=== PATIENT | male | born 1955 | race Caucasian/White ===

== ENCOUNTER 2019-09-05 06:00 | Outpatient (RCR) | payer BC, SELFPAY | END 2019-10-05 00:01 | LOC: SPT 06:00 | PROVIDERS: Family Provider Family Medicine; Visit Provider Orthopaedic Surgery | DX: M75.01 Adhesive capsulitis of right shoulder (principal) | CPT/HCPCS: 97110 ×3; 97140; 97164; 97530 ==

== ENCOUNTER → 2019-10-28 11:31 | Outpatient (BNVA) | payer BC, SELFPAY | PROVIDERS: Family Provider Family Medicine; PCP Family Medicine; Visit Provider Nurse Practitioner | DX: F33.2 Major depressive disorder, recurrent severe without psychotic features (principal); F41.3 Other mixed anxiety disorders | CPT/HCPCS: 99214 ==

== ENCOUNTER → 2019-12-09 08:07 | Outpatient (BNVA) | payer BC, SELFPAY | PROVIDERS: Family Provider Family Medicine; PCP Family Medicine; Visit Provider Nurse Practitioner | DX: F41.3 Other mixed anxiety disorders (principal); F33.2 Major depressive disorder, recurrent severe without psychotic features | CPT/HCPCS: 99214 ==

== ENCOUNTER → 2020-01-12 07:45 | Outpatient (BNVA) | payer BC, SELFPAY | PROVIDERS: Family Provider Family Medicine; PCP Family Medicine; Visit Provider Nurse Practitioner | DX: F41.3 Other mixed anxiety disorders (principal); F33.2 Major depressive disorder, recurrent severe without psychotic features | CPT/HCPCS: 99213 ==

== ENCOUNTER → 2020-02-15 09:57 | Outpatient (BNVA) | payer BC, SELFPAY | PROVIDERS: Family Provider Family Medicine; PCP Family Medicine; Referring Provider Family Medicine; Visit Provider Family Medicine | DX: E78.00 Pure hypercholesterolemia, unspecified (principal); E13.9 Other specified diabetes mellitus without complications; H57.9 Unspecified disorder of eye and adnexa | CPT/HCPCS: 80053; 80061; 83036; 85025 ==

== ENCOUNTER → 2020-03-08 07:42 | Outpatient (BNVA) | payer BC, SELFPAY | PROVIDERS: Family Provider Family Medicine; PCP Family Medicine; Visit Provider Nurse Practitioner | DX: F41.3 Other mixed anxiety disorders (principal); F33.2 Major depressive disorder, recurrent severe without psychotic features | CPT/HCPCS: 99213 ==

== ENCOUNTER → 2020-06-08 07:07 | Outpatient (BNVA) | payer MEDICARE, SELFPAY | PROVIDERS: Family Provider Family Medicine; PCP Family Medicine; Visit Provider Nurse Practitioner | DX: F33.2 Major depressive disorder, recurrent severe without psychotic features (principal); F41.3 Other mixed anxiety disorders | CPT/HCPCS: 99214 ==

== ENCOUNTER → 2020-08-16 10:21 | Outpatient (BNVA) | payer MEDICARE, SELFPAY | PROVIDERS: Family Provider Family Medicine; PCP Family Medicine; Visit Provider Family Medicine | DX: E13.9 Other specified diabetes mellitus without complications (principal); E78.00 Pure hypercholesterolemia, unspecified; Z68.33 Body mass index [BMI] 33.0-33.9, adult | CPT/HCPCS: 80053; 80061; 83036 ==

== ENCOUNTER → 2020-10-20 08:44 | Outpatient (BNVA) | payer MEDICARE, SELFPAY | PROVIDERS: Family Provider Family Medicine; PCP Family Medicine; Visit Provider Family Medicine | DX: E78.00 Pure hypercholesterolemia, unspecified (principal) | CPT/HCPCS: 80061 ==

== ENCOUNTER → 2020-12-28 11:18 | Outpatient (BNVA) | payer MEDICARE, SELFPAY | PROVIDERS: Family Provider Family Medicine; PCP Family Medicine; Visit Provider Nurse Practitioner | DX: F33.2 Major depressive disorder, recurrent severe without psychotic features (principal); F41.3 Other mixed anxiety disorders | CPT/HCPCS: 99214 ==

== ENCOUNTER → 2021-02-05 11:16 | Outpatient (BNVA) | payer MEDICARE, SELFPAY | PROVIDERS: Family Provider Family Medicine; PCP Family Medicine; Visit Provider Nurse Practitioner | DX: F33.2 Major depressive disorder, recurrent severe without psychotic features (principal); F41.3 Other mixed anxiety disorders | CPT/HCPCS: 99214 ==

== ENCOUNTER → 2021-03-09 07:47 | Outpatient (BNVA) | payer MEDICARE, SELFPAY | PROVIDERS: Family Provider Family Medicine; PCP Family Medicine; Visit Provider Nurse Practitioner | DX: F33.2 Major depressive disorder, recurrent severe without psychotic features (principal); F41.3 Other mixed anxiety disorders | CPT/HCPCS: 99214 ==

== ENCOUNTER → 2021-04-12 09:35 | Outpatient (BNVA) | payer MEDICARE, SELFPAY | PROVIDERS: Family Provider Family Medicine; PCP Family Medicine; Visit Provider Family Medicine | DX: E13.9 Other specified diabetes mellitus without complications (principal); K64.5 Perianal venous thrombosis; F41.3 Other mixed anxiety disorders; N52.9 Male erectile dysfunction, unspecified | CPT/HCPCS: 80053; 83036 ==

== ENCOUNTER → 2021-05-31 07:45 | Outpatient (BNVA) | payer MEDICARE, SELFPAY | PROVIDERS: Family Provider Family Medicine; PCP Family Medicine; Visit Provider Nurse Practitioner | DX: F33.2 Major depressive disorder, recurrent severe without psychotic features (principal); F41.3 Other mixed anxiety disorders; F12.20 Cannabis dependence, uncomplicated | CPT/HCPCS: 99214 ==

== ENCOUNTER → 2021-08-23 07:42 | Outpatient (BNVA) | payer MEDICARE, SELFPAY | PROVIDERS: Family Provider Family Medicine; PCP Family Medicine; Visit Provider Nurse Practitioner | DX: F33.2 Major depressive disorder, recurrent severe without psychotic features (principal); F41.3 Other mixed anxiety disorders; F15.20 Other stimulant dependence, uncomplicated; F12.20 Cannabis dependence, uncomplicated | CPT/HCPCS: 80306; 99214 ==

== ENCOUNTER → 2021-11-13 07:52 | Outpatient (BNVA) | payer MEDICARE, SELFPAY | PROVIDERS: Family Provider Family Medicine; PCP Family Medicine; Visit Provider Nurse Practitioner | DX: F33.2 Major depressive disorder, recurrent severe without psychotic features (principal); F41.3 Other mixed anxiety disorders; F15.20 Other stimulant dependence, uncomplicated; F12.20 Cannabis dependence, uncomplicated | CPT/HCPCS: 99214 ==

== ENCOUNTER → 2021-12-11 12:03 | Outpatient (BNVA) | payer MEDICARE, SELFPAY | PROVIDERS: Family Provider Family Medicine; PCP Family Medicine; Visit Provider Family Medicine | DX: Z00.00 Encounter for general adult medical examination without abnormal findings (principal); E13.9 Other specified diabetes mellitus without complications | CPT/HCPCS: 80053; 83036 ==

== ENCOUNTER → 2022-05-15 08:02 | Outpatient (BNVA) | payer MEDICARE, SELFPAY | PROVIDERS: Family Provider Family Medicine; PCP Family Medicine; Visit Provider Family Medicine | DX: E13.9 Other specified diabetes mellitus without complications (principal) | CPT/HCPCS: 80053; 83036 ==

== ENCOUNTER 2022-05-29 08:00 | Outpatient (CLI) | payer MEDICARE, SELFPAY ==
--- NOTE | 2022-05-29 08:18 | XR_ITS ---
WS: [id number] Thoracic spine, 3 views, 05/29/2022 Clinical Data: S39.92XA - Unspecified injury of lower back, initial enco... Comparison: None. Findings: No compression fractures are seen. The disc heights are normal. There is moderate osteoarthritis of the thoracic vertebral bodies. The paravertebral regions are not remarkable. XR/XR thoracic spine 3V* [id number] Impression: Moderate osteoarthritis of the thoracic vertebral bodies.
== END 2022-05-29 08:01 | disposition home or self-care (01) ==
LOC: RAD 08:03
PROVIDERS: PCP Family Medicine; Visit Provider Family Medicine
DX: S39.92XA Unspecified injury of lower back, initial encounter (principal); X58.XXXA Exposure to other specified factors, initial encounter; M47.894 Other spondylosis, thoracic region
CPT/HCPCS: 72072

== ENCOUNTER → 2023-01-22 11:09 | Outpatient (BNVA) | payer OTHER, SELFPAY | PROVIDERS: PCP Family Medicine | DX: Z79.899 Other long term (current) drug therapy (principal) | CPT/HCPCS: 80061; 83036 ==

== ENCOUNTER 2023-03-14 10:15 | Outpatient (CLI) | payer MEDICARE, SELFPAY ==
[2023-02-07 14:32] VITALS: BP 147/83; BMI 33.0
[2023-03-14 11:08] LABS: Amphetamines Screen Urine Negative (Negative); Barbiturates Screen Urine Negative (Negative); Benzodiazepines Screen Urine Negative (Negative); Cocaine Screen Urine Negative (Negative); Opiate Screen Urine Negative (Negative); PCP Screen Urine Negative (Negative); THC Screen Urine Negative (Negative)
[2023-03-14 11:11] LABS: Alanine Aminotransferase 105 U/L (0-41); Albumin Level 4.1 g/dL (3.5-5.2); Alkaline Phosphatase 120 U/L (40-130); Anion Gap 17.1 (5-19); Aspartate Amino Transferase 54 U/L (0-40); Blood Urea Nitrogen 13 mg/dL (8-23); Calcium 9.1 mg/dL (8.5-10.5); Carbon Dioxide 22 mmol/L (22-29); Chloride 99 mmol/L (98-107); Globulin 3.2 g/dL (1.3-4.6); Glomerular Filtration Rate 84.2 mL/min (90-130); Glucose 347 mg/dL (65-115); Osmolality Calculated 292 mOsm/kg (285-295); Potassium 4.1 mmol/L (3.5-5.1); Sodium 134 mmol/L (136-145); Total Bilirubin 0.6 mg/dL (0.15-1.2); Total Protein 7.3 g/dL (6.6-8.7)
== END 2023-03-14 10:16 | disposition home or self-care (01) ==
PROVIDERS: PCP Family Medicine; Visit Provider Nurse Practitioner Psychiatric/Mental Health
DX: Z79.899 Other long term (current) drug therapy (principal)
CPT/HCPCS: 36415; 80053; 80306; 93005

== ENCOUNTER → 2023-06-16 13:49 | Outpatient (BNVA) | payer MEDICARE, SELFPAY ==
[2023-02-07 14:32] VITALS: BP 147/83; BMI 33.0
== END ==
PROVIDERS: PCP Family Medicine; Visit Provider Family Medicine
DX: E05.90 Thyrotoxicosis, unspecified without thyrotoxic crisis or storm (principal); E13.9 Other specified diabetes mellitus without complications; F33.2 Major depressive disorder, recurrent severe without psychotic features; I10 Essential (primary) hypertension; F15.20 Other stimulant dependence, uncomplicated
CPT/HCPCS: 80053; 83036; 84439

== ENCOUNTER 2023-11-20 13:10 | Outpatient (CLI) | payer MEDICARE, SELFPAY ==
[2023-02-07 14:32] VITALS: BP 147/83; BMI 33.0
--- NOTE | 2023-11-20 13:30 | USCV_ITS ---
Sameer Ng Age: 68 Gender: M : 1955 Exam Date: 11/20/2023 14:44 Ordering Phys: Julian Arreguin MD Technologist: Kayla Lopez Network Security Consultant [place] [facility] [place]: WEAKNESS RIGHT LEFT Brachial 172.00 mmHg Brachial 163.00 mmHg Pressure (mmHg) Waveform Pressure (mmHg) Waveform 194.00 BEHAVIORAL HEALTH DIRECTOR 200.00 0.00 DPA 182.00 1.13 Ankle/Brachial Index 1.16 162.00 Pre-Exercise Toe Pressure 144.00 0.94 Pre-Exercise Toe/Brachial Index 0.84 FINDINGS Resting JOSSELYN 1.13 on the right side and 1.16 on the left Resting TBI of 0.94 on the right and 0.84 on the left CONCLUSIONS Normal resting ABIs and TBIs bilaterally, suggesting no significant arterial obstruction Dr Keshia Narayanan MD [facility] (Electronically Signed) Final Date: 24 November 2023 21:46 S
== END 2023-11-20 13:11 | disposition home or self-care (01) ==
LOC: RAD 13:10
PROVIDERS: PCP Family Medicine; Visit Provider Family Medicine
DX: E13.51 Other specified diabetes mellitus with diabetic peripheral angiopathy without gangrene (principal); R53.1 Weakness
CPT/HCPCS: 93922

== ENCOUNTER → 2024-04-01 09:50 | Outpatient (BNVA) | payer MEDICARE, SELFPAY ==
[2023-02-07 14:32] VITALS: BP 147/83; BMI 33.0
== END ==
PROVIDERS: PCP Family Medicine; Visit Provider Nurse Practitioner Psychiatric/Mental Health
DX: F33.2 Major depressive disorder, recurrent severe without psychotic features (principal); Z79.899 Other long term (current) drug therapy; F15.20 Other stimulant dependence, uncomplicated
CPT/HCPCS: 80053; 80061; 82306; 82607; 83036

== ENCOUNTER → 2024-05-13 09:31 | Outpatient (BNVA) | payer MEDICARE, SELFPAY ==
[2023-02-07 14:32] VITALS: BP 147/83; BMI 33.0
== END ==
PROVIDERS: PCP Family Medicine; Visit Provider Family Medicine
DX: R79.89 Other specified abnormal findings of blood chemistry (principal)
CPT/HCPCS: 84403

== ENCOUNTER → 2024-09-16 11:08 | Outpatient (BNVA) | payer MEDICARE, SELFPAY ==
[2023-02-07 14:32] VITALS: BP 147/83; BMI 33.0
== END ==
PROVIDERS: PCP Family Medicine; Visit Provider Family Medicine
DX: F33.2 Major depressive disorder, recurrent severe without psychotic features (principal); E13.9 Other specified diabetes mellitus without complications; Z79.899 Other long term (current) drug therapy
CPT/HCPCS: 80053; 83036